=== PATIENT | male | born 1940 | race Caucasian/White ===

== ENCOUNTER 2019-11-19 15:59 | Emergency (ER) | payer OTHER ==
[~2019-11-19] VITALS: Ht 180.3 cm; Wt 88.5 kg
[~2019-11-19 15:59] MED LIST: ACCUPRIL5 MG PO; ALFUZOSIN HCL10 MG PO; ASPIR-LOW 81 MG81 MG PO; ASPIRIN81 M2 PO; CENTRUM SILVER1 EAC4 PO; CERTAGEN SOL1 BO1 NG; CIALIS20 MG PO; COMPLETE MULTI1 EAC2 PO; FINASTERIDE5 MG PO; MELOXICAM7.5 MG PO; PRILOSEC OTC20 MG PO; QUINAPRIL 20 MG20 M1 PO; QUINU10 PD PO; SIMVASTATIN40 MG PO; SIMVASTATIN5 MG PO; UROXATRAL; VIT C; VITAMIN E1000 UNI2 PO; VITAMIN E400 UNI3 PO; VITAMIN E400 UNIT PO; VITAMINC500 PO
[2019-11-19 16:13] LABS: ABSOLUTE NEUTROPHILS 3.4 thou/uL (1.4-8.2); BASOPHILS 0.6 % (0.0-2.0); EOSINOPHILS 1.9 % (0.0-3.0); HEMATOCRIT 45.6 % (42.0-52.0); HEMOGLOBIN 16.1 gm/dL (14.0-18.0); LYMPHOCYTES 36.6 % (24.0-44.0); MCH 32.7 pg (26.0-34.0); MCHC 35.3 g/dL (28.0-37.0); MCV 92.6 fL (80.0-100.0); PLATELET COUNT 191 thou/uL (150-400); POLYS 50.9 % (36.0-66.0); RBC 4.93 mil/uL (4.50-6.00); WBC 6.7 thou/uL (4.0-11.0)
[2019-11-19] MEDS ORDERED: LIPITOR40 MG PO (16:16)
[2019-11-19] MEDS ORDERED: ISOSORBIDE DINI30 MG PO (16:17)
[2019-11-19] MEDS ORDERED: PANTOPRAZOLE SO40 M1 PO (16:17)
[2019-11-19] MEDS ORDERED: ASA81BEC PO (16:17)
[2019-11-19 16:25] LABS: ANION GAP 8 mmol/L (7-16); BUN 17 mg/dL (7-18); CALCIUM 8.9 mg/dL (8.5-10.1); CHLORIDE 100 mmol/L (98-107); CO2 26 mmol/L (21-32); CREATININE 1.1 mg/dL (0.7-1.3); GLUCOSE 119 mg/dL (74-106); SODIUM 134 mmol/L (136-145)
[2019-11-19 16:34] LABS: ALBUMIN 3.8 g/dL (3.4-5.0); SGOT 42 U/L (15-37); SGPT 39 U/L (30-65); TOTAL BILIRUBIN 1.3 mg/dL (0.2-1.0); TOTAL PROTEIN 7.5 g/dL (6.4-8.2); TROPONIN-I <0.06 ng/mL (<0.06)
[2019-11-19 16:46] LABS: APTT 28.9 Seconds (24.5-32.8); PROTIME 10.7 Seconds (9.3-11.4)
[2019-11-19 18:39] VITALS: BP 127/69
--- NOTE | 2019-11-20 08:45 | EKG ---
[facility] [place] [address] ELECTROCARDIOGRAM REPORT Name: OSBALDO MILLER Room #: [facility]P [facility] HE[facility] SERVICESClaudia#: [id number] Admission: 11/19/19 Attend Phys: Discharge: 11/19/19 Date of : 40 Report #: [id number] THIS REPORT FOR: cc: Gabe Mae MD, Eric K. MD Lundgren,David Trent MD [facility] ~ THIS REPORT FOR: //name// [facility] ED Test Date: 2019-11-19 Test Time: 15:56:54 Pat Name: OSBALDO MILLER Department: Room: Gender: [employer]: [facility] : 1940 Requested By: Hi Kilpatrick Order Number: [id number] MD: David Rene Measurements Intervals [place] Rate: 63 P: 71 RI: 153 QRS: -57 QRSD: 96 T: 32 QT: 475 QTc: 487 Interpretive Statements Sinus rhythm Left anterior fascicular block Borderline prolonged QT interval Compared to ECG 11/25/2015 12:35:17 Sinus bradycardia no longer present Electronically Signed On 11-20-2019 8:45:30 CDT by David Rene [email or web address] <ELECTRONICALLY SIGNED> By: David Rene MD, [facility] 11/20/19 [id number] 1556 David Rene MD, [facility] /EPI
== END 2019-11-19 20:06 | disposition home or self-care (01) ==
LOC: ER 15:59
PROVIDERS: Emergency Medicine
DX: K44.9 Diaphragmatic hernia without obstruction or gangrene (principal); R07.89 Other chest pain; I10 Essential (primary) hypertension; K21.9 Gastro-esophageal reflux disease without esophagitis; E78.5 Hyperlipidemia, unspecified; Z79.82 Long term (current) use of aspirin; Z79.899 Other long term (current) drug therapy